=== PATIENT | male | born 1980 | race African-American/Black ===

== ENCOUNTER 2019-06-23 13:34 | Emergency (ER) | payer OTHER ==
[~2019-06-23] VITALS: Ht 175.3 cm; Wt 93.0 kg
[2019-06-23 13:59] VITALS: BP 126/73
== END 2019-06-23 14:58 | disposition home or self-care (01) ==
LOC: ER 13:38
DX: L91.0 Hypertrophic scar (principal); Z88.6 Allergy status to analgesic agent

== ENCOUNTER 2024-09-29 01:00 | Emergency (ER) | payer OTHER | END 2024-09-29 02:42 | disposition home or self-care (01) | LOC: ER 01:02 | DX: S82.899A Other fracture of unspecified lower leg, initial encounter for closed fracture (principal); Z53.21 Procedure and treatment not carried out due to patient leaving prior to being seen by health care provider; X58.XXXA Exposure to other specified factors, initial encounter; Y93.89 Activity, other specified; Y92.89 Other specified places as the place of occurrence of the external cause; Y99.8 Other external cause status ==